=== PATIENT | male | born 1940 | race Caucasian/White ===

== ENCOUNTER → 2020-02-03 | Outpatient (CLI) | payer MEDICARE, BC ==
[2020-02-03 12:18] LABS: Basophils # (A) 0.1 k/uL (0-0.2); Basophils % (A) 1 %; Eosinophils # (A) 0.1 k/uL (0-0.7); Eosinophils % (A) 1 %; HGB 15.6 gm/dL (13.0-17.5); Lymphocytes # (A) 1.6 k/uL (1.0-4.8); Lymphocytes % (A) 20 %; MCH 31.3 pg (25.0-35.0); MCHC 33.3 g/dL (31.0-37.0); MCV 94.1 fL (80.0-100.0); Mean Platelet Volume 7.1; Monocytes # (A) 0.5 k/uL (0-1.0); Monocytes % (A) 6 %; Neutrophils # (A) 5.5 k/uL (1.3-7.7); Neutrophils % (A) 70 %; Platelet Count 329 k/uL (150-450); RBC 4.99 m/uL (4.30-5.90); RDW 12.3 % (11.5-15.5); WBC 7.9 k/uL (3.8-10.6)
[2020-02-03 16:12] LABS: Erythrocyte Sedimentation Rate 11 mm/hr (0-15)
== END | disposition home or self-care (01) ==
LOC: LABWHC1 10:22
PROVIDERS: ATTEND Psychiatry & Neurology Neurology
DX: M79.2 Neuralgia and neuritis, unspecified (principal); I77.6 Arteritis, unspecified
CPT/HCPCS: 36415; 85025; 85652

== ENCOUNTER → 2020-05-06 | Outpatient (CLI) | payer MEDICARE, BC ==
[2020-05-07 00:16] LABS: African American GFR (CKD) 94.5 (60.0-200.0); Anion Gap 8.1 mmol/L (4.00-12.00); BUN/Creat Ratio 22.22 Ratio (12.00-20.00); Carbon Dioxide 26.9 mmol/L (21.6-31.8); Non-African American GFR(CKD) 81.5 (60.0-200.0); Potassium 4.5 mmol/L (3.5-5.5)
== END | disposition home or self-care (01) ==
LOC: LABWHC1 14:29
PROVIDERS: ATTEND Psychiatry & Neurology Neurology
DX: Z51.81 Encounter for therapeutic drug level monitoring (principal); Z79.899 Other long term (current) drug therapy
CPT/HCPCS: 36415; 80048; 80183

== ENCOUNTER → 2021-06-07 | Outpatient (CLI) | payer MEDICARE, BC ==
[2021-06-07 16:19] LABS: Basophils # (A) 0.06 X 10*3/uL (0.00-0.10); Basophils % (A) 0.8 %; Eosinophils % (A) 1.3 %; HCT 43.8 % (39.6-50.0); HGB 14.4 g/dL (13.0-17.0); Lymphocytes # (A) 1.55 X 10*3/uL (0.90-5.00); Lymphocytes % (A) 20.9 %; MCH 31.6 pg (27.0-32.0); MCHC 32.9 g/dL (32.0-37.0); MCV 96.3 fL (80.0-97.0); Mean Platelet Volume 9.3 fL (9.5-12.2); Monocytes # (A) 0.59 X 10*3/uL (0.20-1.00); Neutrophils # (A) 5.09 X 10*3/uL (1.80-7.70); Neutrophils % (A) 68.6 %; Platelet Count 308 X 10*3/uL (140-440); RBC 4.55 X 10*6/uL (4.40-5.60); RDW 12.7 % (11.5-14.5); WBC 7.42 X 10*3/uL (4.50-10.00)
[2021-06-07 19:37] LABS: African American GFR (CKD) 93.8 (60.0-200.0); Albumin 4.6 g/dL (3.80-4.90); Albumin/Globulin Ratio 2.09 (1.60-3.17); Anion Gap 11.8 mmol/L (4.00-12.00); BUN/Creat Ratio 31.11 Ratio (12.00-20.00); Calcium 8.9 mg/dL (8.7-10.3); Carbon Dioxide 22.2 mmol/L (21.6-31.8); Globulin 2.2 g/dL (1.6-3.3); Non-African American GFR(CKD) 80.9 (60.0-200.0); Potassium 4.7 mmol/L (3.5-5.5); Total Bilirubin 0.5 mg/dL (0.2-1.2); Total Protein 6.8 g/dL (6.2-8.2)
== END | disposition home or self-care (01) ==
LOC: LABWHC1 09:57
PROVIDERS: ATTEND Psychiatry & Neurology Neurology
DX: Z51.81 Encounter for therapeutic drug level monitoring (principal)
CPT/HCPCS: 36415; 80053; 80183; 85025

== ENCOUNTER 2022-10-12 10:46 | Emergency (ER) | payer MEDICARE, BC ==
[2022-10-12 10:57] VITALS: PULSE 89; RESP 20; TEMP 98.4
--- NOTE | 2022-10-12 13:41 | ED ---
General Adult HPI - General Chief complaint: Abdominal Pain Stated complaint: blood in urine, abd pain Time Seen by Provider: 10/12/22 13:24 Source: patient Mode of arrival: ambulatory Limitations: no limitations - History of Present Illness Initial comments: Dictation was produced using [employer] dictation software. please excuse any grammatical, word or spelling errors. Chief Complaint: 82-year-old male presents with hematuria and abdominal pain History of Present Illness: Patient is a 82-year-old male presents emergency Department with 1 day of hematuria. He also complains of associated abdominal pain. Patient states that he was playing straight [employer]signal since yesterday. Patient also noted that he is having some suprapubic tenderness. Patient states that he just 10 minutes prior to my evaluation his symptoms improve slightly. Denies any fever. No nausea. No chills or night sweats. The ROS documented in this emergency department record has been reviewed and confirmed by me. Those systems with pertinent positive or negative responses have been documented in the HPI. All other systems are other negative and/or no ncontributory. PHYSICAL EXAM: General Impression: Alert and oriented x3, not in acute distress HEENT: Normocephalic atraumatic, extra-ocular movements intact, pupils equal and reactive to light bilaterally, mucous membranes moist. Cardiovascular: Heart regular rate and rhythm Chest: Able to complete full sentences, no retractions, no tachypnea Abdomen: abdomen soft, mild tenderness to the suprapubic area, non-distended, no organomegaly Musculoskeletal: Pulses present and equal in all extremities, no peripheral edema Motor: no focal deficits noted Neurological: CN II-XII grossly intact, no focal motor or sensory deficits noted Skin: Intact with no visualized rashes Psych: Normal affect and mood ED course: 82-year-old male presents to the emergency Department with acute hematuria and lower abdominal pain. Vital Signs upon arrival are within acceptable limits. Laboratory evaluation obtained. CBC, metabolic panel within acceptable limits. Urinalysis shows brown color. Bladder scan was elevated. Foreman catheter placed with removal of approximately 1 L of brown urine patient reports resolution of his symptoms after Foreman catheter placement. Patient discharged with referral to urology. - Related Data Home Medications Medication Instructions Recorded Confirmed Aspirin 325 mg PO DAILY 10/24/15 10/28/15 Cholecalciferol [Vitamin D3] 4,000 unit PO DAILY 10/24/15 10/28/15 Multivitamin [Men's Multi-Vitamin] 1 tab PO DAILY 10/24/15 10/28/15 Omeprazole [PriLOSEC] 20 mg PO Q48H 10/24/15 10/28/15 Rivastigmine [Exelon 13.3MG/24Hr 1 patch TOPICAL DAILY 10/24/15 10/28/15 Patch] Simvastatin [Zocor] 20 mg PO DAILY 10/24/15 10/28/15 Ubidecarenone [Co Q-10] 100 mg PO DAILY 10/24/15 10/28/15 amLODIPine BESYLATE/BENAZEPRIL 1 tab PO BID 10/24/15 10/28/15 [Lotrel 5-20 mg Capsule] Previous Rx's Medication Instructions Recorded Hydrocodone/Acetaminophen [[place] 1 - 2 each PO Q6HR PRN #40 tab 10/28/15 5-325] clindamycin HCL [Clindamycin HCl] 300 mg PO Q12HR #20 cap 10/28/15 Allergies Allergy/AdvReac Type Severity Reaction Status Date / Time No Known Allergies Allergy Verified 10/12/22 10:57 Review of Systems ROS Statement: Those systems with pertinent positive or pertinent negative responses have been documented in the HPI. ROS Other: All systems not noted in ROS Statement are negative. Past Medical History Past Medical History: Cancer, CVA/TIA, Hyperlipidemia, Hypertension Additional Past Medical History / Comment(s): HXOF BASAL CELL CA, HX KIDNEY STONES, SOME MEMORY LOSS POST TIA History of Any Multi-Drug Resistant Organisms: None Reported Additional Past Surgical History / Comment(s): BASAL CELL CA REMOVED FROM BACK Past Anesthesia/Blood Transfusion Reactions: No Reported Reaction Past Psychological History: No Psychological Hx Reported Smoking Status: Never smoker Past Alcohol Use History: Rare Past Drug Use History: None Reported - Past Family History Mother Family Medical History: Cancer Additional Family Medical History / Comment(s): BREAST Sister(s) Family Medical History: Cancer Additional Family Medical History / Comment(s): STOMACH Brother(s) Family Medical History: Cancer Additional Family Medical History / Comment(s): 2 BROTHERS HX OF CA General Exam Limitations: no limitations Course Vital Signs 10/12/22 10:55 Temperature 98.4 F Pulse Rate 89 Respiratory 20 Rate O2 Sat by Pulse 96 Oximetry Medical Decision Making - Lab Data Result diagrams: 10/12/22 14:14 10/12/22 14:14 Lab Results 10/12/22 10/12/22 10/12/22 Range/Units 13:57 14:14 14:14 WBC 15.2 H (3.8-10.6) k/uL RBC 4.64 (4.30-5.90) m/uL Hgb 14.7 (13.0-17.5) gm/dL Hct 42.5 (39.0-53.0) % MCV 91.4 (80.0-100.0) fL MCH 31.7 (25.0-35.0) pg MCHC 34.7 (31.0-37.0) g/dL RDW 12.5 (11.5-15.5) % Plt Count 314 (150-450) k/uL MPV 7.1 Neutrophils % 90 % Lymphocytes % 4 % Monocytes % 5 % Eosinophils % 0 % Basophils % 0 % Neutrophils # 13.6 H (1.3-7.7) k/uL Lymphocytes # 0.6 L (1.0-4.8) k/uL Monocytes # 0.8 (0-1.0) k/uL Eosinophils # 0.1 (0-0.7) k/uL Basophils # 0.0 (0-0.2) k/uL Sodium 137 (137-145) mmol/L Potassium 4.6 (3.5-5.1) mmol/L Chloride 102 (98-107) mmol/L Carbon Dioxide 23 (22-30) mmol/L Anion Gap 12 mmol/L BUN 29 H (9-20) mg/dL Creatinine 1.24 (0.66-1.25) mg/dL Est GFR (CKD-EPI)AfAm 63 (>60 ml/min/1.73 sqM) Est GFR (CKD-EPI)NonAf 55 (>60 ml/min/1.73 sqM) Glucose 121 H (74-99) mg/dL Calcium 9.6 (8.4-10.2) mg/dL Urine Color Brown Urine Appearance Bloody (Clear) Disposition Clinical Impression: Urinary retention Disposition: HOME SELF-CARE Condition: Good Instructions (If sedation given, give patient instructions): Foreman Catheter Placement and Care (ED) Is patient prescribed a controlled substance at d/c from ED?: No Referrals: Kristian Moore DO [Primary Care Provider] - 1-2 days Salvador Galarza MD [STAFF PHYSICIAN] - 1-2 days Time of Disposition: 15:03
[2022-10-12 14:07] LABS: Appearance,Urine Bloody (Clear); Color,Urine Brown
[2022-10-12 14:31] LABS: Basophils % (A) 0 %; Eosinophils # (A) 0.1 k/uL (0-0.7); Eosinophils % (A) 0 %; HCT 42.5 % (39.0-53.0); HGB 14.7 gm/dL (13.0-17.5); Lymphocytes # (A) 0.6 k/uL (1.0-4.8); Lymphocytes % (A) 4 %; MCH 31.7 pg (25.0-35.0); MCHC 34.7 g/dL (31.0-37.0); MCV 91.4 fL (80.0-100.0); Mean Platelet Volume 7.1; Monocytes # (A) 0.8 k/uL (0-1.0); Monocytes % (A) 5 %; Neutrophils # (A) 13.6 k/uL (1.3-7.7); Neutrophils % (A) 90 %; Platelet Count 314 k/uL (150-450); RBC 4.64 m/uL (4.30-5.90); RDW 12.5 % (11.5-15.5); WBC 15.2 k/uL (3.8-10.6)
[2022-10-12 14:48] LABS: Calcium 9.6 mg/dL (8.4-10.2); Potassium 4.6 mmol/L (3.5-5.1)
== END 2022-10-12 15:39 | disposition home or self-care (01) ==
LOC: EC 10:46
DX: R33.9 Retention of urine, unspecified (principal); I10 Essential (primary) hypertension; G45.9 Transient cerebral ischemic attack, unspecified; E78.5 Hyperlipidemia, unspecified; Z79.82 Long term (current) use of aspirin; Z79.899 Other long term (current) drug therapy
CPT/HCPCS: 36415; 51798; 80048; 85025; 99284

== ENCOUNTER → 2022-11-02 | Outpatient (CLI) | payer MEDICARE, BC ==
--- NOTE | 2022-11-03 10:59 | CT ---
EXAMINATION TYPE: CT urogram wo/w con CT DLP: 1557.5 mGycm, Automated exposure control for dose reduction was used. DATE OF EXAM: 11/02/2022 5:19 PM COMPARISON: None CLINICAL INDICATION:Male, 82 years old with history of R31.0 HEMATURIA, HEMATURIA TECHNIQUE: Urogram with imaging of the abdomen and pelvis. Coronal and sagittal reformats were performed. 2D and 3D reconstructions are performed to assist visualization of the urinary tract on a separate workstat ion. Contrast used:100ML mL of Isovue 300 with IV Contrast, Oral contrast used: None. FINDINGS: GENITOURINARY: RIGHT KIDNEY AND URETER: Multiple renal calculi measuring up to 10 mm. Large right exophytic mass off the inferior posterior kidney injury up to 9.5 x 8.2 x 8.8 cm there is predominantly peripheral enhancement with its smaller area of central nonenhancement suggesting cavi tation. No hydronephrosis or hydroureter. The ureter appears unremarkable. LEFT KIDNEY AND URETER: No calculi. No hydronephrosis or hydroureter. Posterior lateral left renal mass which enhances measuring up to 4.8 x 4.9 x 6.0 cm. Additional more anterior lateral 17 mm enhancing lesion. Lastly a posterior medial 13 mm enhancing lesion is also present. 10 mm lesion in the anterior superior aspect of the left kidney is also suggested but suboptimally ev aluated. There is bulbous dilation of the left renal vein. The ureter appears unremarkable. URINARY BLADDER: Limited evaluation secondary to partial filling of the bladder with excreted IV cont rast. No calculi or obvious mass. Foreman catheter in place. REPRODUCTIVE: Prostate gland is enlarged projected to 5.3 cm in transverse dimension. ABDOMEN LIVER: Unremarkable. GALLBLADDER AND BILE DUCTS: Layering gallstones present. PANCREAS: Unremarkable. SPLEEN: Unremarkable. ADRENAL GLANDS: Unremarkable. STOMACH AND BOWEL: No evidence of bowel obstruction. Scattered clonic diverticulosis. PERITONEUM: No evidence of pneumoperitoneum, free fluid, or adenopathy. VASCULATURE: No evidence of aortic aneurysm. MUSCULOSKELETAL: No acute osseous abnormalities LYMPH NODES: No gross evidence for lymphadenopathy. SOFT TISSUE/ABDOMINAL WALL: Unremarkable LOWER CHEST: Mitral valve annular calcifications, atherosclerosis of the coronary arteries visualized . IMPRESSION: 1. Multiple renal lesions concerning for renal cell carcinoma, the largest on the right measuring up to 9.5 cm. At least 3 areas within the left kidney the largest measuring up to 6.0 cm while the smal ler more anterior laterally measuring up to 1.7 cm and posterior medially measuring 1.3 cm. Somewhat bulbous dilation of the left renal vein unclear whether there is tumor within the vein itself. There is also a small left anterior renal 10 mm lesion which could represent renal cell carcinoma as well. Evaluation with MRI may be of benefit. 2. Nonobstructing right renal calculi. 3. Cholelithiasis. 4. Prostatomegaly with Foreman catheter in place.
== END | disposition home or self-care (01) ==
LOC: RADCTMAIN 13:43
PROVIDERS: ATTEND Urology
DX: N20.0 Calculus of kidney (principal); K80.20 Calculus of gallbladder without cholecystitis without obstruction; N40.0 Benign prostatic hyperplasia without lower urinary tract symptoms; N28.9 Disorder of kidney and ureter, unspecified
CPT/HCPCS: 82565; 84520; 74178; 74400; Q9967

== ENCOUNTER → 2022-11-20 | Outpatient (CLI) | payer MEDICARE, BC ==
[2022-11-20 14:19] LABS: African American GFR (CKD) >90 (>60 ml/min/1.73 sqM); Blood Urea Nitrogen 20 mg/dL (9-20); Non-African American GFR(CKD) 83 (>60 ml/min/1.73 sqM)
--- NOTE | 2022-11-20 15:18 | CT ---
EXAMINATION TYPE: CT chest w con DATE OF EXAM: 11/20/2022 COMPARISON: None HISTORY: Obs for mets CT DLP: 435 mGycm Automated exposure control for dose reduction was used. CONTRAST: CT scan of the chest is performed with IV Contrast, patient injected with 100ml mL of Isovue 300. FINDINGS: LUNGS: The lungs are grossly clear, there is no concerning parenchymal mass or nodule identified. T here is no pleural effusion or pneumothorax seen. The tracheobronchial tree is patent. MEDIASTINUM: There are no greater than 1 cm hilar or mediastinal lymph nodes. No pericardial effusi on is seen. Thoracic aorta is of normal caliber. The heart is not enlarged. UPPER ABDOMEN: Partially imaged left renal mass for renal cell carcinoma. Cholelithiasis. OTHER: No additional significant abnormality is seen. IMPRESSION: No evidence for metastatic disease to the chest.
== END | disposition home or self-care (01) ==
LOC: RADCTMAIN 13:42
PROVIDERS: ATTEND Urology
DX: C64.1 Malignant neoplasm of right kidney, except renal pelvis (principal); C64.2 Malignant neoplasm of left kidney, except renal pelvis
CPT/HCPCS: 82565; 84520; 71260; 36415; Q9967

== ENCOUNTER → 2023-06-27 | Outpatient (CLI) | payer MEDICARE, BC ==
[2023-06-27 11:56] LABS: African American GFR (CKD) 49 (>60 ml/min/1.73 sqM); Blood Urea Nitrogen 41 mg/dL (9-20); Non-African American GFR(CKD) 43 (>60 ml/min/1.73 sqM)
--- NOTE | 2023-06-27 19:52 | CT ---
EXAMINATION TYPE: CT chest w con CT DLP: 339.9 mGycm, Automated exposure control for dose reduction was used. DATE OF EXAM: 06/27/2023 12:27 PM COMPARISON: CT chest 11/20/2022 CLINICAL INDICATION:Male, 82 years old with history of J39.8 OTHER SPECIFIED DISEASES OF UPPER RESPIR ATOR; PHH, chest mass TECHNIQUE: Multiple axial images were obtained through the chest following the administration of 80 c c of Isovue 300. . Coronal and sagittal reformats reviewed. FINDINGS: LUNGS/ PLEURA: No pleural effusion, pneumothorax, focal consolidation. Left upper lobe 5 mm pulmonary nodule (series 4, image 30). Previously measured 3 mm. No new pulmonary nodules. AIRWAY: Patent and unremarkable.. No definitive paratracheal mass. HEART: Size within normal limits.No pericardial effusion. Moderate coronary tear calcifications. Aort ic valvular and mitral annulus calcifications. MEDIASTINUM: No evidence of adenopathy. VASCULATURE: No aortic aneurysm. Atherosclerotic calcification of the aorta and its branches. Dilata tion the main pulmonary artery measuring up to 3.8 cm. This can be seen in the setting of pulmonary a rterial hypertension. MUSCULOSKELETAL: No acute osseous abnormalities. No aggressive osseous lesion. Minimal multilevel deg enerative disc disease. SOFT TISSUES/LYMPH NODES: Minimal bilateral gynecomastia. LOWER NECK: No significant findings. UPPER ABDOMEN: No significant findings. IMPRESSION: 1. No acute thoracic process. 2. Marginal increase in size of single left upper lobe 5 mm prominent nodule, previously 3 mm in 2021 . No new pulmonary nodules. Follow-up CT chest exam in 6 months is recommended.
== END | disposition home or self-care (01) ==
LOC: RADCTMAIN 11:13
PROVIDERS: ATTEND Family Medicine
DX: J39.8 Other specified diseases of upper respiratory tract (principal); R91.1 Solitary pulmonary nodule
CPT/HCPCS: 82565; 84520; 71260; 36415; Q9967

== ENCOUNTER → 2023-12-17 | Outpatient (CLI) | payer MEDICARE, BC ==
--- NOTE | 2023-12-17 14:54 | CT ---
EXAMINATION TYPE: CT chest wo con DATE OF EXAM: 12/17/2023 COMPARISON: 727, 11/20/2000 HISTORY: SOLITARY PULMONARY NODULE CT DLP: 366.7 mGycm. Automated Exposure Control for Dose Reduction was Utilized. TECHNIQUE: CT scan of the thorax is performed without IV contrast. FINDINGS: LUNGS: The lungs are grossly clear, there is no concerning consolidative pneumonia. There is no ple ural effusion or pneumothorax seen. The tracheobronchial tree is patent. Underlying edematous change s. Subsegmental areas of atelectasis. Elevated left hemidiaphragm. There is mild peribronchial wall t hickening which is stable and may be associated with chronic bronchitis\bronchiolitis. No suspicious pulmonary nodules. Previously noted 5 mm nodule in the left upper lobe has resolved. There is a stable 2 mm benign subpleural micronodule right upper lobe axial image 28 series There is a subpleural benign micronodule measuring 2 mm left upper lobe axial image [address] able. MEDIASTINUM: Lack of IV contrast is noted to limit evaluation for mediastinal and especially hilar ad enopathy. There are no definitive greater than 1 cm hilar or mediastinal lymph nodes. Heart is mildly enlarged and there is calcification of the aortic root and near the aortic valve. Dense coronary art bebeto calcification. Trace of pericardial fluid. Aorta normal caliber with mild atherosclerotic changes . Mitral annular calcification. OTHER: Cholelithiasis. Hypertrophic and degenerative changes spine. Left kidney nonvisualized. A trac e of gynecomastia. Lung the anterior margin of the scapula there is intramuscular small lipoma measur ing 1.5 cm stable prior exam. Small hiatal hernia. IMPRESSION: 1. There is interval resolution of a 5 mm left upper lobe nodule. Remaining pulmonary micronodules ar e stable benign-appearing involving both lung bases with screening low-dose CT scan as clinically war ranted. 2. Dense coronary artery calcification 3. Cholelithiasis. Follow-up recommendations for incidental pulmonary nodules are per [employer] or [employer].
== END | disposition home or self-care (01) ==
LOC: RADCTMAIN 13:59
PROVIDERS: ATTEND Family Medicine
DX: I25.10 Atherosclerotic heart disease of native coronary artery without angina pectoris (principal); K80.20 Calculus of gallbladder without cholecystitis without obstruction; R91.8 Other nonspecific abnormal finding of lung field
CPT/HCPCS: 71250

== ENCOUNTER 2024-01-05 11:20 | Emergency (ER) | payer MEDICARE, BC ==
[2024-01-05 11:31] VITALS: RESP 18
--- NOTE | 2024-01-05 13:00 | ED ---
General Adult HPI - General Chief complaint: Abdominal Pain Stated complaint: Abd Pain Time Seen by Provider: 01/05/24 12:45 Source: patient, RN notes reviewed, old records reviewed Mode of arrival: ambulatory Limitations: no limitations - History of Present Illness Initial comments: Patient is an 83-year-old male who presents emergency department complaining of abdominal pain. Has been intermittent for the last 4 to 5 days. No other associated complaints with it. It is located on the right side of his abdomen. He states it is not painful at this time. Last occurred earlier this morning. Has a known history of gallstones from prior CT. Presents with his sister for evaluation. He has no acute complaints at this time. Denies any chest pain, shortness of breath, abdominal pain, nausea, vomiting. No change in stooling habits. No other acute complaints. 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 - Related Data Home Medications Medication Instructions Recorded Confirmed Aspirin 325 mg PO DAILY 10/24/15 10/28/15 Cholecalciferol [Vitamin D3] 4,000 unit PO DAILY 10/24/15 10/28/15 Multivitamin [Men's Multi-Vitamin] 1 tab PO DAILY 10/24/15 10/28/15 Omeprazole [PriLOSEC] 20 mg PO Q48H 10/24/15 10/28/15 Rivastigmine [Exelon 13.3MG/24Hr 1 patch TOPICAL DAILY 10/24/15 10/28/15 Patch] Simvastatin [Zocor] 20 mg PO DAILY 10/24/15 10/28/15 Ubidecarenone [Co Q-10] 100 mg PO DAILY 10/24/15 10/28/15 amLODIPine BESYLATE/BENAZEPRIL 1 tab PO BID 10/24/15 10/28/15 [Lotrel 5-20 mg Capsule] Previous Rx's Medication Instructions Recorded Hydrocodone/Acetaminophen [[place] 1 - 2 each PO Q6HR PRN #40 tab 10/28/15 5-325] clindamycin HCL [Clindamycin HCl] 300 mg PO Q12HR #20 cap 10/28/15 Ciprofloxacin HCl [Cipro] 500 mg PO Q12HR 5 Days #10 tab 01/05/24 Allergies Allergy/AdvReac Type Severity Reaction Status Date / Time No Known Allergies Allergy Verified 01/05/24 11:25 Review of Systems ROS Statement: Those systems with pertinent positive or pertinent negative responses have been documented in the HPI. Review of Systems: CONST: Denies fever EYES: Denies blurry vision ENT: Denies nasal congestion C/V: Denies Chest pain RESP: Denies shortness of breath GI: Denies abdominal pain : Denies dysuria SKIN: Denies rash. MSK: Denies joint pain. NEURO: Denies headache ROS Other: All systems not noted in ROS Statement are negative. Past Medical History Past Medical History: Cancer, CVA/TIA, Hyperlipidemia, Hypertension Additional Past Medical History / Comment(s): HXOF BASAL CELL CA, HX KIDNEY STONES, SOME MEMORY LOSS POST TIA History of Any Multi-Drug Resistant Organisms: None Reported Additional Past Surgical History / Comment(s): BASAL CELL CA REMOVED FROM BACK, kidney removal. Past Anesthesia/Blood Transfusion Reactions: No Reported Reaction Past Psychological History: No Psychological Hx Reported Smoking Status: Never smoker Past Alcohol Use History: Rare Past Drug Use History: None Reported - Past Family History Mother Family Medical History: Cancer Additional Family Medical History / Comment(s): BREAST Sister(s) Family Medical History: Cancer Additional Family Medical History / Comment(s): STOMACH Brother(s) Family Medical History: Cancer Additional Family Medical History / Comment(s): 2 BROTHERS HX OF CA General Exam - General Exam Comments Initial Comments: General: Appears in no acute distress. HEAD: Normal with no signs of head trauma. EYES: EOMI ENT: Hearing grossly intact, normal oropharynx. RESPIRATORY: Clear breath sounds bilaterally. No wheezes, rales, or rhonchi. C/V: Regular rate and rhythm. S1 and S2 auscultated, no edema, peripheral pulses 2+ and intact throughout ABD: Abd is soft, nontender, nondistended EXT: Normal range of motion, no obvious deformity SKIN: No rashes or lesions observed on exposed skin. NEURO: Alert and oriented x 4. Limitations: no limitations Course Vital Signs 01/05/24 01/05/24 11:22 15:50 Temperature 98.5 F 98.0 F Pulse Rate 74 67 Respiratory 18 18 Rate Blood Pressure 161/75 175/84 O2 Sat by Pulse 94 L 93 L Oximetry Medical Decision Making - Medical Decision Making Was pt. sent in by a medical professional or institution (Dr., PA, VISUAL EDUCATOR, urgent care, hospital, or correction...) When possible be specific @ -No Did you speak to anyone other than the patient for history (EMS, parent, family, police, friend...)? What history was obtained from this source @ -No Did you review nursing and triage notes (agree or disagree)? Why? @ -I reviewed and agree with nursing and triage notes Were old charts reviewed (outside hosp., previous admission, EMS record, old EKG, old radiological studies, urgent care reports/EKG's, correction records)? Report findings @ -No old charts were reviewed Differential Diagnosis (chest pain, altered mental status, abdominal pain women, abdominal pain men, vaginal bleeding, weakness, fever, dyspnea, syncope, headache, dizziness, GI bleed, back pain, seizure, CVA, palpatations, mental health, musculoskeletal)? @ -Differential Abdominal Pain Men: Appendicitis, cholecystitis, diverticulosis, ischemic bowel, pancreatitis, hepatitis, UTI, gastroenteritis, AAA, incarcerated hernia, bowel obstruction, constipation, inflammatory bowel, hepatitis, peptic ulcer disease, splenic infarction, perforated viscus, testicular torsion, this is not meant to be an all-inclusive list EKG interpreted by me (3pts min.). @ -As above X-rays interpreted by me (1pt min.). @ -None done CT interpreted by me (1pt min.). @ -None done U/S interpreted by me (1pt. min.). @ -Ultrasound gallbladder reveals no obvious acute intra-abdominal process. No evidence of cholecystitis. Patient does have cholelithiasis. What testing was considered but not performed or refused? (CT, X-rays, U/S, labs)? Why? @ -None What meds were considered but not given or refused? Why? @ -None Did you discuss the management of the patient with other professionals (professionals i.e. , PA, VISUAL EDUCATOR, lab, RT, psych nurse, dialysis social worker, carcass splitter, teacher, contracts officer, case packer and sealer)? Give summary @ -No Was smoking cessation discussed for >3mins.? @ -No Was critical care preformed (if so, how long)? @ -No Were there social determinants of health that impacted care today? How? (Homelessness, low income, unemployed, alcoholism, drug addiction, transpor tation, low edu. Level, literacy, decrease access to med. care, alf, rehab)? @ -No Was there de-escalation of care discussed even if they declined (Discuss DNR or withdrawal of care, Hospice)? DNR status @ -No What co-morbidities impacted this encounter? (DM, HTN, Smoking, COPD, CAD, Cancer, CVA, ARF, Chemo, Hep., AIDS, mental health diagnosis, sleep apnea, morbid obesity)? @ -None Was patient admitted / discharged? Hospital course, mention meds given and route, prescriptions, significant lab abnormalities, going to OR and other pertinent info. @ -Patient is an 83-year-old male presenting with right-sided abdominal pain. Has been on and off for the last 4 to 5 days. Currently has no symptoms and is asymptomatic since earlier today. He has a known history of cholelithiasis. Denies any nausea, vomiting, change in stooling habits. We will obtain abdominal laboratory studies as well as ultrasound of the gallbladder. Patient was in agreement this plan. He will be given IV fluids but as he has no other symptoms no other medications are required at this time. He was in agreement this plan. Vital signs are within acceptable limits. Since imaging unremarkable. Patient does have cholelithiasis without any evidence of cholecystitis. Patient's laboratory studies also within acceptable limits. Chronic kidney disease present. Urinalysis borderline for UTI. I discussed results with the patient as well as his sister. He remains asymptomatic at this time. He will be started on an antibiotic as well as discharged home at this time. He was in agreement this plan. Strict return precautions discussed. I will provide the patient with a prescription for ciprofloxacin. I instructed the patient to follow up with their PCP in the next 1-3 days. I explained that the patient should return to the emergency department if they experience any worsening symptoms. Strict return precautions were discussed with the patient. The patient expressed understanding of these instructions. I answered all questions that the patient had. The patient was discharged home in good condit ion with their prescriptions and follow up information. Undiagnosed new problem with uncertain prognosis? @ -No Drug Therapy requiring intensive monitoring for toxicity (Heparin, Nitro, Insulin, Cardizem)? @ -No Were any procedures done? @ -No Diagnosis/symptom? @ -UTI, cholelithiasis Acute, or Chronic, or Acute on Chronic? @ -Acute Uncomplicated (without systemic symptoms) or Complicated (systemic symptoms)? @ -Complicated Side effects of treatment? @ -None Exacerbation, Progression, or Severe Exacerbation] @ -No Poses a threat to life or bodily function? @ -Unlikely - Lab Data Result diagrams: 01/05/24 14:27 01/05/24 14:50 Lab Results 01/05/24 01/05/24 01/05/24 Range/Units 13:15 14:27 14:37 WBC 9.6 (3.8-10.6) k/uL RBC 4.24 L (4.30-5.90) m/uL Hgb 13.7 (13.0-17.5) gm/dL Hct 39.8 (39.0-53.0) % MCV 93.8 (80.0-100.0) fL MCH 32.2 (25.0-35.0) pg MCHC 34.3 (31.0-37.0) g/dL RDW 13.1 (11.5-15.5) % Plt Count 270 (150-450) k/uL MPV 6.8 Neutrophils % 75 % Lymphocytes % 15 % Monocytes % 5 % Eosinophils % 4 % Basophils % 1 % Neutrophils # 7.2 (1.3-7.7) k/uL Lymphocytes # 1.4 (1.0-4.8) k/uL Monocytes # 0.5 (0-1.0) k/uL Eosinophils # 0.4 (0-0.7) k/uL Basophils # 0.1 (0-0.2) k/uL PT 10.2 (10.0-12.5) sec INR 0.9 (<1.2) APTT 24.1 (22.0-30.0) sec Sodium (137-145) mmol/L Potassium (3.5-5.1) mmol/L Chloride (98-107) mmol/L Carbon Dioxide (22-30) mmol/L Anion Gap mmol/L BUN (9-20) mg/dL Creatinine (0.66-1.25) mg/dL Est GFR (CKD-EPI)AfAm (>60 ml/min/1.73 sqM) Est GFR (CKD-EPI)NonAf (>60 ml/min/1.73 sqM) Glucose (74-99) mg/dL Plasma Lactic Acid Mike 0.9 (0.7-2.0) mmol/L Calcium (8.4-10.2) mg/dL Total Bilirubin (0.2-1.3) mg/dL AST (17-59) U/L ALT (4-49) U/L Alkaline Phosphatase (38-126) U/L Total Protein (6.3-8.2) g/dL Albumin (3.5-5.0) g/dL Amylase (30-110) U/L Lipase (23-300) U/L Urine Color Urine Appearance (Clear) Urine pH (5.0-8.0) Ur Specific [place] (1.001-1.035) Urine Protein (Negative) Urine Glucose (UA) (Negative) Urine Ketones (Negative) Urine Blood (Negative) Urine Nitrite (Negative) Urine Bilirubin (Negative) Urine Urobilinogen (<2.0) mg/dL Ur Leukocyte Esterase (Negative) Urine RBC (0-5) /hpf Urine WBC (0-5) /hpf Urine Mucus (None) /hpf 01/05/24 01/05/24 Range/Units 14:50 15:10 WBC (3.8-10.6) k/uL RBC (4.30-5.90) m/uL Hgb (13.0-17.5) gm/dL Hct (39.0-53.0) % MCV (80.0-100.0) fL MCH (25.0-35.0) pg MCHC (31.0-37.0) g/dL RDW (11.5-15.5) % Plt Count (150-450) k/uL MPV Neutrophils % % Lymphocytes % % Monocytes % % Eosinophils % % Basophils % % Neutrophils # (1.3-7.7) k/uL Lymphocytes # (1.0-4.8) k/uL Monocytes # (0-1.0) k/uL Eosinophils # (0-0.7) k/uL Basophils # (0-0.2) k/uL PT (10.0-12.5) sec INR (<1.2) APTT (22.0-30.0) sec Sodium 140 (137-145) mmol/L Potassium 4.4 (3.5-5.1) mmol/L Chloride 111 H (98-107) mmol/L Carbon Dioxide 21 L (22-30) mmol/L Anion Gap 8 mmol/L BUN 25 H (9-20) mg/dL Creatinine 1.29 H (0.66-1.25) mg/dL Est GFR (CKD-EPI)AfAm 59 (>60 ml/min/1.73 sqM) Est GFR (CKD-EPI)NonAf 51 (>60 ml/min/1.73 sqM) Glucose 89 (74-99) mg/dL Plasma Lactic Acid Mike (0.7-2.0) mmol/L Calcium 8.3 L (8.4-10.2) mg/dL Total Bilirubin 0.4 (0.2-1.3) mg/dL AST 26 (17-59) U/L ALT 22 (4-49) U/L Alkaline Phosphatase 74 (38-126) U/L Total Protein 7.1 (6.3-8.2) g/dL Albumin 4.1 (3.5-5.0) g/dL Amylase 90 (30-110) U/L Lipase 80 (23-300) U/L Urine Color Colorless Urine Appearance Clear (Clear) Urine pH 6.0 (5.0-8.0) Ur Specific [place] 1.011 (1.001-1.035) Urine Protein Negative (Negative) Urine Glucose (UA) Negative (Negative) Urine Ketones Negative (Negative) Urine Blood Trace H (Negative) Urine Nitrite Positive (Negative) Urine Bilirubin Negative (Negative) Urine Urobilinogen <2.0 (<2.0) mg/dL Ur Leukocyte Esterase Moderate H (Negative) Urine RBC 3 (0-5) /hpf Urine WBC 19 H (0-5) /hpf Urine Mucus Rare H (None) /hpf - EKG Data -: EKG Interpreted by Me EKG Comments: 12-lead Electrocardiogram Interpretation Note EKG was reviewed and interpreted by myself. 12-lead ECG performed at 1324 is interpreted by me as revealing normal sinus rhythm at a rate of 67 beats per minute. Right axis deviation. CA interval is 234 ms, QRS duration is 170 ms, QTc is 446 ms.. There were no ST or T wave abnormalities to suggest myocardial ischemia or injury. R wave progression across the precordium was satisfactory. By my interpretation this EKG is non-diagnostic for acute ischemia. Disposition Clinical Impression: UTI (urinary tract infection), Cholelithiasis Disposition: HOME SELF-CARE Condition: Good Instructions (If sedation given, give patient instructions): Gallstones (ED), Urinary Tract Infection in Men (ED) Prescriptions: Ciprofloxacin HCl [Cipro] 500 mg PO Q12HR 5 Days #10 tab Is patient prescribed a controlled substance at d/c from ED?: No Referrals: Kristian Moore DO [Primary Care Provider] - 1-2 days Time of Disposition: 15:24
[2024-01-05] MEDS: SODIUM CHLORIDE 0.9% 1,000 ML IV STA (13:21)
[2024-01-05 14:30] LABS: Basophils # (A) 0.1 k/uL (0-0.2); Basophils % (A) 1 %; Eosinophils # (A) 0.4 k/uL (0-0.7); Eosinophils % (A) 4 %; HCT 39.8 % (39.0-53.0); HGB 13.7 gm/dL (13.0-17.5); Lymphocytes # (A) 1.4 k/uL (1.0-4.8); Lymphocytes % (A) 15 %; MCH 32.2 pg (25.0-35.0); MCHC 34.3 g/dL (31.0-37.0); MCV 93.8 fL (80.0-100.0); Mean Platelet Volume 6.8; Monocytes # (A) 0.5 k/uL (0-1.0); Monocytes % (A) 5 %; Neutrophils # (A) 7.2 k/uL (1.3-7.7); Neutrophils % (A) 75 %; Platelet Count 270 k/uL (150-450); RBC 4.24 m/uL (4.30-5.90); RDW 13.1 % (11.5-15.5); WBC 9.6 k/uL (3.8-10.6)
--- NOTE | 2024-01-05 14:47 | US ---
EXAMINATION TYPE: US gallbladder DATE OF EXAM: 01/05/2024 COMPARISON: NONE CLINICAL INDICATION: Male, 83 years old with history of ruq abd pain; recent CT showed Gb stones, abd pain on and off TECHNIQUE: Multiple sonographic images of the right upper quadrant are obtained. FINDINGS: EXAM MEASUREMENTS: Liver Length: 17.6 cm Gallbladder Wall: 0.3 cm CBD: 0.5 cm Right Kidney: 9.2 x 4.2 x 5.5 cm CHAPLAIN NOTES:bowel gas limits exam Pancreas: obscured by bowel gas Liver: left lobe obscured, intercostal on the right wnl Gallbladder: multiple shadowing stones seen wit borderline wall Evidence for sonographic Pérez's sign: no CBD: wnl Right Kidney: part of right renal removed this last year due to CA IMPRESSION: 1. Echogenic and mildly enlarged liver. 2. Multiple tiny gallstones. 3. Sonographic Pérez sign negative 4. Partial right nephrectomy..
[2024-01-05 15:03] LABS: INR 0.9 (<1.2); Partial Thromboplastin Time 24.1 sec (22.0-30.0); Prothrombin Time 10.2 sec (10.0-12.5)
[2024-01-05 15:08] LABS: ALT 22 U/L (4-49); AST 26 U/L (17-59); African American GFR (CKD) 59 (>60 ml/min/1.73 sqM); Albumin 4.1 g/dL (3.5-5.0); Alkaline Phosphatase 74 U/L (38-126); Amylase 90 U/L (30-110); Anion Gap 8 mmol/L; Blood Urea Nitrogen 25 mg/dL (9-20); Calcium 8.3 mg/dL (8.4-10.2); Carbon Dioxide 21 mmol/L (22-30); Chloride 111 mmol/L (98-107); Glucose 89 mg/dL (74-99); Lipase 80 U/L (23-300); Non-African American GFR(CKD) 51 (>60 ml/min/1.73 sqM); Potassium 4.4 mmol/L (3.5-5.1); Sodium 140 mmol/L (137-145); Total Bilirubin 0.4 mg/dL (0.2-1.3); Total Protein 7.1 g/dL (6.3-8.2)
[2024-01-05 15:15] LABS: Appearance,Urine Clear (Clear); Bilirubin,Urine Negative (Negative); Blood,Urine Trace (Negative); Color,Urine Colorless; Glucose,Urine (UA) Negative (Negative); Ketones,Urine Negative (Negative); Leukocyte Esterase,Urine Moderate (Negative); Mucus,Urine Rare /hpf; Nitrite,Urine Positive (Negative); Protein,Urine Negative (Negative); RBC,Urine 3 /hpf (0-5); Specific Gravity,Urine 1.011 (1.001-1.035); Urobilinogen,Urine <2.0 mg/dL (<2.0); WBC,Urine 19 /hpf (0-5)
[2024-01-05] MEDS: CIPROFLOXACIN HCL 500 MG TAB PO STA (15:57)
[2024-01-05 16:05] VITALS: BP 175/84; PULSE 67; TEMP 98
== END 2024-01-05 16:05 | disposition home or self-care (01) ==
LOC: EC 11:20
DX: N39.0 Urinary tract infection, site not specified (principal); K80.20 Calculus of gallbladder without cholecystitis without obstruction; I44.0 Atrioventricular block, first degree; E78.5 Hyperlipidemia, unspecified; I10 Essential (primary) hypertension; Z79.899 Other long term (current) drug therapy; Z79.82 Long term (current) use of aspirin
CPT/HCPCS: 36415; 76705; 80053; 81001; 82150; 83605; 83690; 85025; 85610; 85730; 87086; 93005; 96360; 99284

== ENCOUNTER 2025-06-03 13:03 | Inpatient (IN) | payer MEDICARE, BC ==
[2025-06-03 14:52] LABS: ALT 26 U/L (4-49); African American GFR (CKD) 35 (>60 ml/min/1.73 sqM); Anion Gap 17 mmol/L; Blood Urea Nitrogen 62 mg/dL (9-20); Calcium 9.6 mg/dL (8.4-10.2); Carbon Dioxide 19 mmol/L (22-30); Chloride 103 mmol/L (98-107); Glucose 97 mg/dL (74-99); Non-African American GFR(CKD) 30 (>60 ml/min/1.73 sqM); Sodium 139 mmol/L (137-145)
[2025-06-03 14:57] LABS: Albumin 4.7 g/dL (3.5-5.0); Potassium 5.5 mmol/L (3.5-5.1); Total Protein 7.5 g/dL (6.3-8.2)
[2025-06-03 14:58] LABS: AST 33 U/L (17-59); Alkaline Phosphatase 49 U/L (38-126)
[2025-06-03] MEDS ORDERED: DEXAMETHASONE SOD PHOSPHATE 10 MG/ML 1 ML VIAL IM STA (15:06)
--- NOTE | 2025-06-03 15:12 | ED ---
General Adult HPI - General Chief complaint: Extremity Problem,Nontraumatic Stated complaint: rash,arm swelling Time Seen by Provider: 06/03/25 14:55 Source: patient, family, RN notes reviewed, old records reviewed Mode of arrival: wheelchair Limitations: no limitations - History of Present Illness Initial comments: 84-year-old male presenting with a several day history of rash on his upper extremities and torso. Patient denies any exposure, first noticed the rash on his arms. Patient denies any medication changes. He has been on the same medication for many years. He states the rash is somewhat itchy. No new lotions, no new detergents. No difficulty breathing. No fever. - Related Data Home Medications Medication Instructions Recorded Confirmed Aspirin 325 mg PO DAILY 10/24/15 10/28/15 Cholecalciferol [Vitamin D3] 4,000 unit PO DAILY 10/24/15 10/28/15 Multivitamin [Men's Multi-Vitamin] 1 tab PO DAILY 10/24/15 10/28/15 Omeprazole [PriLOSEC] 20 mg PO Q48H 10/24/15 10/28/15 Rivastigmine [Exelon 13.3MG/24Hr 1 patch TOPICAL DAILY 10/24/15 10/28/15 Patch] Simvastatin [Zocor] 20 mg PO DAILY 10/24/15 10/28/15 Ubidecarenone [Co Q-10] 100 mg PO DAILY 10/24/15 10/28/15 amLODIPine BESYLATE/BENAZEPRIL 1 tab PO BID 10/24/15 10/28/15 [Lotrel 5-20 mg Capsule] Previous Rx's Medication Instructions Recorded Hydrocodone/Acetaminophen [[place] 1 - 2 each PO Q6HR PRN #40 tab 10/28/15 5-325] clindamycin HCL [Clindamycin HCl] 300 mg PO Q12HR #20 cap 10/28/15 Ciprofloxacin HCl [Cipro] 500 mg PO Q12HR 5 Days #10 tab 01/05/24 Allergies Allergy/AdvReac Type Severity Reaction Status Date / Time No Known Allergies Allergy Verified 01/05/24 11:25 Review of Systems ROS Statement: Those systems with pertinent positive or pertinent negative responses have been documented in the HPI. ROS Other: All systems not noted in ROS Statement are negative. Past Medical History Past Medical History: Cancer, CVA/TIA, Hyperlipidemia, Hypertension Additional Past Medical History / Comment(s): HXOF BASAL CELL CA, HX KIDNEY STONES, SOME MEMORY LOSS POST TIA History of Any Multi-Drug Resistant Organisms: None Reported Additional Past Surgical History / Comment(s): BASAL CELL CA REMOVED FROM BACK, kidney removal. Past Anesthesia/Blood Transfusion Reactions: No Reported Reaction Past Psychological History: No Psychological Hx Reported Smoking Status: Never smoker Past Alcohol Use History: Rare Past Drug Use History: None Reported - Past Family History Mother Family Medical History: Cancer Additional Family Medical History / Comment(s): BREAST Sister(s) Family Medical History: Cancer Additional Family Medical History / Comment(s): STOMACH Brother(s) Family Medical History: Cancer Additional Family Medical History / Comment(s): 2 BROTHERS HX OF CA General Exam Limitations: no limitations General appearance: alert, in no apparent distress Head exam: Present: atraumatic, normocephalic Eye exam: Present: normal appearance, PERRL, EOMI Neck exam: Present: normal inspection. Absent: tenderness, meningismus Respiratory exam: Absent: respiratory distress, wheezes Cardiovascular Exam: Present: regular rate, normal rhythm GI/Abdominal exam: Present: soft. Absent: distended, tenderness, guarding Neurological exam: Present: alert, oriented X3 Skin exam: Present: rash, erythema. Absent: urticaria, vesicles Course Vital Signs 06/03/25 06/03/25 13:12 16:00 Temperature 97.7 F Pulse Rate 79 72 Respiratory 18 16 Rate Blood Pressure 100/62 138/81 O2 Sat by Pulse 94 L 98 Oximetry Medical Decision Making - Medical Decision Making Was pt. sent in by a medical professional or institution (, PA, COMMERCIAL PHOTOGRAPHER, urgent care, hospital, or [facility]...) When possible be specific @ -No Did you speak to anyone other than the patient for history (EMS, parent, family, police, friend...)? What history was obtained from this source @Patient's sister who is at bedside. Did you review nursing and triage notes (agree or disagree)? Why? @ -I reviewed and agree with nursing and triage notes Were old charts reviewed (outside hosp., previous admission, EMS record, old EKG, old radiological studies, urgent care reports/EKG's, [facility]cc records)? Report findings @ -No old charts were reviewed Differential diagnosis: Drug eruption, Sarabia-Sandeep's, [place], eczema, viral exanthem, contact dermatitis EKG interpreted by me (3pts min.). @ -As above X-rays interpreted by me (1pt min.). @ -None done CT interpreted by me (1pt min.). @ -None done U/S interpreted by me (1pt. min.). @ -None done What testing was considered but not performed or refused? (CT, X-rays, U/S, labs)? Why? @ -None What meds were considered but not given or refused? Why? @ -None Did you discuss the management of the patient with other professionals (prof prabhakar i.e. , PA, COMMERCIAL PHOTOGRAPHER, lab, RT, psych nurse, psychiatric social worker supervisor, cork mixer, teacher, sheriff's officer, case assembler)? Give summary @Dr. Ritter Was smoking cessation discussed for >3mins.? @ -No Was critical care preformed (if so, how long)? @ -No Were there social determinants of health that impacted care today? How? (Homelessness, low income, unemployed, alcoholism, drug addiction, transportation, low edu. Level, literacy, decrease access to med. care, [facility], rehab)? @ -No Was there de-escalation of care discussed even if they declined (Discuss DNR or withdrawal of care, Hospice)? DNR status @ -No What co-morbidities impacted this encounter? (DM, HTN, Smoking, COPD, CAD, Cancer, CVA, ARF, Chemo, Hep., AIDS, mental health diagnosis, sleep apnea, morbid obesity)? @ -None Was patient admitted / discharged? Hospital course, mention meds given and route, prescriptions, significant lab abnormalities, going to OR and other pertinent info. @ -84-year-old male presenting with generalized rash. This is erythematous raised rash covering the bilateral upper extremities. There is no blistering. Patient is on ox carbamazepine and chlorthalidone. He states there was some exposure but this was quite minimal. The rashes in both sun exposed areas and not exposed areas. No fever. Patient has a ROYAL with elevated BUN and creatinine from baseline. He has a normal CBC. Patient placed on IV fluids, steroids, and Benadryl. Will observe overnight. Will hold both oxcarbazepine and chlorthalidone as possible offending agents. Case discussed with Dr. Ritter who will admit. Undiagnosed new problem with uncertain prognosis? @ -No Drug Therapy requiring intensive monitoring for toxicity (Heparin, Nitro, Insulin, Cardizem)? @ -No Were any procedures done? @ -No Diagnosis/symptom? @ -ROYAL, dehydration, generalized rash Acute, or Chronic, or Acute on Chronic? @ -Acute Uncomplicated (without systemic symptoms) or Complicated (systemic symptoms)? @ -Default Side effects of treatment? @ -No Exacerbation, Progression, or Severe Exacerbation? @ -No Poses a threat to life or bodily function? How? (Chest pain, [place], [place], pneumonia, PE, COPD, DKA, ARF, appy, cholecystitis, CVA, Diverticulitis, Homicidal, Suicidal, threat to staff... and all critical care pts) @Yes, Cornelius DICK's - Lab Data Result diagrams: 06/03/25 15:30 06/03/25 14:29 Lab Results 06/03/25 06/03/25 Range/Units 14:29 15:30 WBC 9.78 (4.50-10.00) 10*3/uL RBC 4.31 L (4.40-5.60) 10*6/uL Hgb 13.8 (13.0-17.0) g/dL Hct 41.0 (39.6-50.0) % MCV 95.1 (80.0-97.0) fL MCH 32.0 (27.0-32.0) pg MCHC 33.7 (32.0-37.0) g/dL Plt Count 282 (140-440) 10*3/uL MPV 8.3 L (9.5-12.2) fL Immature Gran % (Auto) 0.6 % Neutrophils % 72.4 % Lymphocytes % 13.2 % Monocytes % 7.1 % Eosinophils % 6.3 % Basophils % 0.4 % Immature Gran # 0.06 H (0.00-0.04) 10*3/uL Neutrophils # 7.08 (1.80-7.70) 10*3/uL Lymphocytes # 1.29 (0.90-5.00) 10*3/uL Monocytes # 0.69 (0.20-1.00) 10*3/uL Eosinophils # 0.62 H (0.04-0.35) 10*3/uL Basophils # 0.04 (0.00-0.10) 10*3/uL Sodium 139 (137-145) mmol/L Potassium 5.5 H (3.5-5.1) mmol/L Chloride 103 (98-107) mmol/L Carbon Dioxide 19 L (22-30) mmol/L Anion Gap 17 mmol/L BUN 62 H (9-20) mg/dL Creatinine 1.99 H (0.66-1.25) mg/dL Est GFR (CKD-EPI)AfAm 35 (>60 ml/min/1.73 sqM) Est GFR (CKD-EPI)NonAf 30 (>60 ml/min/1.73 sqM) Glucose 97 (74-99) mg/dL Calcium 9.6 (8.4-10.2) mg/dL Total Bilirubin 0.8 (0.2-1.3) mg/dL AST 33 (17-59) U/L ALT 26 (4-49) U/L Alkaline Phosphatase 49 (38-126) U/L Total Protein 7.5 (6.3-8.2) g/dL Albumin 4.7 (3.5-5.0) g/dL Disposition Clinical Impression: Drug eruption, ROYAL (acute kidney injury) Disposition: ADMITTED IP TO THIS HOSP Condition: Stable Is patient prescribed a controlled substance at d/c from ED?: No Referrals: Kristian Moore DO [Primary Care Provider] - 1-2 days Time of Disposition: 16:27
[2025-06-03] MEDS: SODIUM CHLORIDE 0.9% 500 ML 500 ML IV ONE (15:37)
[2025-06-03] MEDS: DEXAMETHASONE SOD PHOSPHATE 10 MG/ML 1 ML VIAL IVP STA (15:38)
[2025-06-03 15:47] LABS: Basophils # (A) 0.04 10*3/uL (0.00-0.10); Basophils % (A) 0.4 %; Eosinophils # (A) 0.62 10*3/uL (0.04-0.35); Eosinophils % (A) 6.3 %; HCT 41.0 % (39.6-50.0); HGB 13.8 g/dL (13.0-17.0); Lymphocytes # (A) 1.29 10*3/uL (0.90-5.00); Lymphocytes % (A) 13.2 %; MCH 32.0 pg (27.0-32.0); MCHC 33.7 g/dL (32.0-37.0); MCV 95.1 fL (80.0-97.0); Monocytes # (A) 0.69 10*3/uL (0.20-1.00); Monocytes % (A) 7.1 %; Neutrophils # (A) 7.08 10*3/uL (1.80-7.70); Neutrophils % (A) 72.4 %; Platelet Count 282 10*3/uL (140-440); RBC 4.31 10*6/uL (4.40-5.60); RDW 13.3 % (11.5-14.5); WBC 9.78 10*3/uL (4.50-10.00)
[2025-06-03] MEDS: diphenhydrAMINE 25 MG CAP PO SCH (16:04)
[2025-06-03] MEDS: SODIUM CHLORIDE 0.9% 1,000 ML IV SCH (16:07)
[2025-06-03] MEDS ORDERED: NALOXONE 0.4 MG/ML 1 ML VIAL IV PRN (16:22)
[2025-06-03] MEDS ORDERED: ACETAMINOPHEN TAB 325 MG TAB PO PRN (16:22)
[2025-06-03] MEDS ORDERED: DEXTROSE 50% SYRINGE 50 ML IVP PRN ×2 (16:47)
[2025-06-03 17:00] LABS: Glucose,Whole Blood 100 mg/dL (70-110)
[2025-06-03] MEDS: INSULIN LISPRO (HumaLOG) 100 UNIT/ML 10 mL VL SQ SCH (17:02)
[2025-06-03] MEDS: diphenhydrAMINE 50 MG/ML 1 ML VIAL IVP SCH (17:03)
[2025-06-03 20:57] LABS: Glucose,Whole Blood 162 mg/dL (70-110)
[2025-06-04] MEDS: methylPREDNISolone SOD SUCCI 125 MG/2 ML VIAL IV SCH (00:22)
--- NOTE | 2025-06-04 01:06 | HP ---
HISTORY AND PHYSICAL CHIEF COMPLAINT: Diffuse rash. HISTORY OF PRESENT ILLNESS: This 84-year-old gentleman with a past medical history of multiple medical problems, hypertension, hyperlipidemia, being followed by Dr. Moore in the outpatient, recently had a fall. Medication assessment was being made. The patient is complaining of diffuse rash at this time, both hands and anterior part of the chest also. The patient was exposed to sun also. The patient was taking clindamycin also. There is no history of fever, rigors, or chills at this time. PAST MEDICAL HISTORY: Reviewed. Include CVA, TIA, hypertension, and hyperlipidemia. Dose and rest of medications reviewed. ALLERGIES: None. FAMILY HISTORY: History of breast cancer. SOCIAL HISTORY: No history of smoking. REVIEW OF SYSTEMS: A 14-point review of systems is negative except as mentioned earlier. PHYSICAL EXAMINATION: VITAL SIGNS: Pulse is 72, blood pressure 130/81, and respirations 16. HEENT: Conjunctivae normal. NECK: No jugular venous distention. CARDIOVASCULAR: S1, S2. RESPIRATIONS: Breath sounds diminished at the bases. ABDOMEN: Soft, nontender. LEGS: No edema. SKIN: Diffuse maculopapular rash present. LABORATORY DATA: Reviewed. ASSESSMENT: 1. Diffuse maculopapular rash, possible drug rash. 2. Chronic kidney disease. 3. Hyperkalemia mild. 4. History of CVA, TIA. 5. History of hypertension. 6. History of hyperlipidemia. 7. History of recent fall. RECOMMENDATIONS: This 84-year-old gentleman presented with multiple complex medical issues. We will monitor the patient closely. I would recommend intravenous steroids, Benadryl, symptomatic treatment. Guarded prognosis because of multiple complex medical. For further recommendations, see orders. We will avoid clindamycin at this time. MMODL / IJN: [id number] /
[2025-06-04 05:50] LABS: Glucose,Whole Blood 137 mg/dL (70-110)
[2025-06-04] MEDS ORDERED: predniSONE 20 MG TAB PO SCH (09:00)
[2025-06-04 09:29] LABS: Anion Gap 13.00 mmol/L (4.00-12.00); BUN/Creat Ratio 32.25 Ratio (12.00-20.00); Blood Urea Nitrogen 51.6 mg/dL (9.0-27.0); Calcium 8.7 mg/dL (8.7-10.3); Carbon Dioxide 18.0 mmol/L (21.6-31.8); Chloride 108 mmol/L (96-109); Glucose 142 mg/dL (70-110); Potassium 4.8 mmol/L (3.5-5.5); Sodium 139 mmol/L (135-145)
[2025-06-04 09:37] LABS: HCT 40.1 % (39.6-50.0); HGB 13.2 g/dL (13.0-17.0); MCH 32.0 pg (27.0-32.0); MCHC 32.9 g/dL (32.0-37.0); MCV 97.1 FL (80.0-97.0); NRBC Per 100 WBC 0 X 10*3/uL (0.00-0.01); Platelet Count 274 X 10*3/uL (140-440); RBC 4.13 X 10*6/uL (4.40-5.60); RDW 13.2 % (11.5-14.5); WBC 10.37 X 10*3/uL (4.50-10.00)
[2025-06-04 10:14] LABS: Basophils # (A) 0.02 X 10*3/uL (0.00-0.10); Basophils % (A) 0.2 %; Eosinophils # (A) 0.01 X 10*3/uL (0.04-0.35); Eosinophils % (A) 0.1 %; Immature Grans, Automated 0.90 %; Lymphocytes # (A) 0.56 X 10*3/uL (0.90-5.00); Lymphocytes % (A) 5.4 %; Monocytes # (A) 0.15 X 10*3/uL (0.20-1.00); Monocytes % (A) 1.4 %; Neutrophils # (A) 9.54 X 10*3/uL (1.80-7.70); Neutrophils % (A) 92.0 %
[2025-06-04 12:13] LABS: Glucose,Whole Blood 154 mg/dL (70-110)
--- NOTE | 2025-06-04 14:38 | PN ---
PROGRESS NOTE DATE OF SERVICE: 06/04/2025 SUBJECTIVE: This is an 84-year-old gentleman who was admitted with a diffuse skin rash. He is being closely monitored. The patient has intravenous steroids and Benadryl. The exact etiology of the rash is unknown at this time. PAST MEDICAL HISTORY: Reviewed. REVIEW OF SYSTEMS: Fourteen-point review of systems negative, except as mentioned earlier. CURRENT MEDICATIONS: Reviewed. PHYSICAL EXAMINATION: VITAL SIGNS: Pulse is a 92, blood pressure 170/80, respirations 18. HEENT: Conjunctivae normal. RESPIRATIONS: A few scattered rhonchi. ABDOMEN: Soft. NERVOUS SYSTEM: Nonfocal LABORATORY DATA: Reviewed. ASSESSMENT: 1. Diffuse maculopapular rash, possibly a drug rash. 2. Chronic kidney disease. 3. Hyperkalemia, mild. 4. History of cerebrovascular accident and transient ischemic attack. 5. Hypertension. 6. Hyperlipidemia. 7. History of recent fall. RECOMMENDATIONS: Recommend to continue current management. I recommend to continue with Benadryl as well as the steroids. Resume the home medications. Guarded prognosis because of multiple complex medical issues. Further recommendations to follow. MMODL / IJN: [id number] /
[2025-06-04] MEDS: METOPROLOL SUCCINATE (ER) 25 MG TAB.ER.24H PO SCH (16:02)
[2025-06-04] MEDS: TAMSULOSIN 0.4 MG CAP.ER.24H PO SCH (16:02)
[2025-06-04 17:39] LABS: Glucose,Whole Blood 172 mg/dL (70-110)
[2025-06-04 20:40] LABS: Glucose,Whole Blood 163 mg/dL (70-110)
[2025-06-04] MEDS: MULTIVITAMINS, THERA 1 EACH TAB PO SCH (21:22)
[2025-06-04] MEDS: CHOLECALCIFEROL 125 MCG (5000 IU) TABLET PO SCH (21:22)
[2025-06-04] MEDS: ZINC SULFATE 220 MG CAP PO SCH (21:22)
[2025-06-04] MEDS: ATORVASTATIN 10 MG TAB PO SCH (21:22)
[2025-06-05 05:52] LABS: Glucose,Whole Blood 149 mg/dL (70-110)
[2025-06-05] MEDS: ASPIRIN 81 MG PO SCH (09:19)
[2025-06-05] MEDS: amLODIPine 10 MG TAB PO SCH (09:19)
[2025-06-05 10:16] LABS: Anion Gap 14.30 mmol/L (4.00-12.00); BUN/Creat Ratio 29.00 Ratio (12.00-20.00); Blood Urea Nitrogen 43.5 mg/dL (9.0-27.0); Calcium 8.9 mg/dL (8.7-10.3); Carbon Dioxide 18.7 mmol/L (21.6-31.8); Chloride 106 mmol/L (96-109); Glucose 152 mg/dL (70-110); Potassium 5.1 mmol/L (3.5-5.5); Sodium 139 mmol/L (135-145)
[2025-06-05 12:17] LABS: Glucose,Whole Blood 158 mg/dL (70-110)
[2025-06-05 12:58] LABS: Basophils # (A) 0.03 X 10*3/uL (0.00-0.10); Basophils % (A) 0.2 %; Eosinophils # (A) 0 X 10*3/uL (0.04-0.35); Eosinophils % (A) 0 %; HCT 37.8 % (39.6-50.0); HGB 12.7 g/dL (13.0-17.0); Immature Grans, Automated 1.00 %; Lymphocytes # (A) 0.89 X 10*3/uL (0.90-5.00); Lymphocytes % (A) 5.8 %; MCH 32.5 pg (27.0-32.0); MCHC 33.6 g/dL (32.0-37.0); MCV 96.7 FL (80.0-97.0); Monocytes # (A) 0.42 X 10*3/uL (0.20-1.00); Monocytes % (A) 2.8 %; NRBC Per 100 WBC 0 X 10*3/uL (0.00-0.01); Neutrophils # (A) 13.77 X 10*3/uL (1.80-7.70); Neutrophils % (A) 90.2 %; Platelet Count 308 X 10*3/uL (140-440); RBC 3.91 X 10*6/uL (4.40-5.60); RDW 13.4 % (11.5-14.5); WBC 15.26 X 10*3/uL (4.50-10.00)
--- NOTE | 2025-06-05 15:04 | P.PN ---
Subjective Progress Note Date: 06/05/25 This is a pleasant 84-year-old male patient of Dr. Moore. He comes into the hospital secondary to generalized diffuse rash. He has been continued on a course of IV Solu-Medrol and IV Benadryl with significant improvement of the rash which extended on his trunk down to his groin and on his upper extremities. He is not having any significant shortness of breath and no wheezing was noted. Was recently started on chlorthalidone daily on April 05 by his distributor cleaner. He states that when he went for his checkup his blood work was fine and was told to continue on this medication. When he comes into the hospital this time his BUN was elevated at 62 and a creatinine of 1.99. Currently his BUN is down to 43.5 and a creatinine of 1.5. White blood cell count is elevated at 15.26. Patient has been afebrile. He has also been continued on 40 mg of lisinopril daily. This medication will be held patient will be continued on normal saline at 75 mL/h. He will be started on a low-dose of hydralazine for improved blood pressure control. Review of Systems Constitutional: Denied any fatigue denied any fever. Cardio vascular: denied any chest pain, palpitations Gastrointestinal: denied any nausea, vomiting, diarrhea Pulmonary: Denied any shortness of breath cough Neurologic denied any new focal deficits All inpatient medications were reviewed and appropriate changes in these medications as dictated in the interval history and assessment and plan. PHYSICAL EXAMINATION: GENERAL: The patient is alert and oriented x3, not in any acute distress. Well developed, well nourished. HEENT: Pupils are round and equally reacting to light. EOMI. No scleral icterus. No conjunctival pallor. Normocephalic, atraumatic. No pharyngeal erythema. No thyromegaly. CARDIOVASCULAR: S1 and S2 present. No murmurs, rubs, or gallops. PULMONARY: Chest is clear to auscultation, no wheezing or crackles. ABDOMEN: Soft, nontender, nondistended, normoactive bowel sounds. No palpable organomegaly. MUSCULOSKELETAL: No joint swelling or deformity. EXTREMITIES: No cyanosis, clubbing, or pedal edema. NEUROLOGICAL: Gross neurological examination did not reveal any focal deficits. SKIN: Maculopapular rash Left lower abdomen into groin Assessment Diffuse maculopapular rash possibly related to the new medication of chlorthalidone Acute kidney injury, drug-induced secondary to ANGELES inhibitor and chlorthalidone Hyperkalemia because of the ROYAL Leukocytosis likely reactive to the high dose solumedrol History of CVA/TIA Hypertension Hyperlipidemia History of renal cell carcinoma with partial right nephrectomy GI prophylaxis DVT prophylaxis Full Code Plan Continue IV benadryl, IV solumedrol Continue to hold chlorthalidone Hold lisinopril Continue normal saline at 75 mls/hr Check UA Continue to monitor renal function and electrolytes Add hydralazine BID for improved blood pressure control Continue amlodipine 10 mg daily Possible D/C home in the next 24 hours The impression and plan of care has been dictated by Rupali Coley, Nurse Practitioner as directed. Dr. Elmira MD I have performed a history and physical examination and medical decision making of this patient, discussed the same with the dictator, and agree with the dictators assessment and plan as written, documented as a scribe. Based on total visit time, I have performed more than 50% of this visit. Objective - Vital Signs Vital signs: Vital Signs Temp 97.8 F 06/05/25 07:23 Pulse 63 06/05/25 07:23 Resp 16 06/05/25 07:23 BP 181/90 06/05/25 07:23 Pulse Ox 98 06/05/25 07:23 FiO2 Intake & Output 06/04/25 06/05/25 06/05/25 18:59 06:59 18:59 Intake Total 118 360 Balance 118 360 Intake: Oral 118 360 Other: # Voids 2 2 # Bowel Movements 0 - Labs CBC & Chem 7: 06/05/25 05:25 06/05/25 05:25 Labs: Abnormal Lab Results - Last 24 Hours (Table) 06/04/25 06/04/25 06/05/25 Range/Units 17:37 20:35 05:25 WBC 15.26 H (4.50-10.00) X 10*3/uL RBC 3.91 L (4.40-5.60) X 10*6/uL Hgb 12.7 L (13.0-17.0) g/dL Hct 37.8 L (39.6-50.0) % MCH 32.5 H (27.0-32.0) pg MPV 9.1 L (9.5-12.2) FL Immature Gran # 0.15 H (0.00-0.04) X 10*3/uL Neutrophils # 13.77 H (1.80-7.70) X 10*3/uL Lymphocytes # 0.89 L (0.90-5.00) X 10*3/uL Eosinophils # 0 L (0.04-0.35) X 10*3/uL Carbon Dioxide (21.6-31.8) mmol/L Anion Gap (4.00-12.00) mmol/L BUN (9.0-27.0) mg/dL Est GFR (CKD-EPI) (>=60) BUN/Creatinine Ratio (12.00-20.00) Ratio Glucose (70-110) mg/dL POC Glucose (mg/dL) 172 H 163 H (70-110) mg/dL 06/05/25 06/05/25 06/05/25 Range/Units 05:25 05:51 12:16 WBC (4.50-10.00) X 10*3/uL RBC (4.40-5.60) X 10*6/uL Hgb (13.0-17.0) g/dL Hct (39.6-50.0) % MCH (27.0-32.0) pg MPV (9.5-12.2) FL Immature Gran # (0.00-0.04) X 10*3/uL Neutrophils # (1.80-7.70) X 10*3/uL Lymphocytes # (0.90-5.00) X 10*3/uL Eosinophils # (0.04-0.35) X 10*3/uL Carbon Dioxide 18.7 L (21.6-31.8) mmol/L Anion Gap 14.30 H (4.00-12.00) mmol/L BUN 43.5 H (9.0-27.0) mg/dL Est GFR (CKD-EPI) 46 L (>=60) BUN/Creatinine Ratio 29.00 H (12.00-20.00) Ratio Glucose 152 H (70-110) mg/dL POC Glucose (mg/dL) 149 H 158 H (70-110) mg/dL Assessment and Plan Time with Patient: Greater than 30
[2025-06-05 17:06] LABS: Glucose,Whole Blood 152 mg/dL (70-110)
[2025-06-05 19:11] LABS: Bilirubin,Urine Negative (Negative); Blood,Urine Negative (Negative); Color,Urine Colorless; Glucose,Urine (UA) Negative (Negative); Ketones,Urine Negative (Negative); Leukocyte Esterase,Urine Negative (Negative); Nitrite,Urine Negative (Negative); PH, Urine 5.5 (5.0-8.0); Protein,Urine Negative (Negative); Specific Gravity,Urine 1.014 (1.001-1.035); Urobilinogen,Urine <2.0 mg/dL (<2.0)
[2025-06-05 20:13] LABS: Glucose,Whole Blood 175 mg/dL (70-110)
[2025-06-06 06:08] LABS: Glucose,Whole Blood 147 mg/dL (70-110)
[2025-06-06 08:55] LABS: Basophils # (A) 0.03 X 10*3/uL (0.00-0.10); Basophils % (A) 0.2 %; Eosinophils # (A) 0 X 10*3/uL (0.04-0.35); Eosinophils % (A) 0 %; HCT 36.1 % (39.6-50.0); HGB 12.2 g/dL (13.0-17.0); Immature Grans, Automated 1.10 %; Lymphocytes # (A) 1.06 X 10*3/uL (0.90-5.00); Lymphocytes % (A) 6.7 %; MCH 32.6 pg (27.0-32.0); MCHC 33.8 g/dL (32.0-37.0); MCV 96.5 FL (80.0-97.0); Monocytes # (A) 0.39 X 10*3/uL (0.20-1.00); Monocytes % (A) 2.5 %; NRBC Per 100 WBC 0 X 10*3/uL (0.00-0.01); Neutrophils # (A) 14.07 X 10*3/uL (1.80-7.70); Neutrophils % (A) 89.5 %; Platelet Count 256 X 10*3/uL (140-440); RBC 3.74 X 10*6/uL (4.40-5.60); RDW 13.2 % (11.5-14.5); WBC 15.72 X 10*3/uL (4.50-10.00)
[2025-06-06 09:12] LABS: Anion Gap 12.90 mmol/L (4.00-12.00); BUN/Creat Ratio 27.92 Ratio (12.00-20.00); Blood Urea Nitrogen 36.3 mg/dL (9.0-27.0); Calcium 8.6 mg/dL (8.7-10.3); Carbon Dioxide 21.1 mmol/L (21.6-31.8); Chloride 102 mmol/L (96-109); Glucose 143 mg/dL (70-110); Magnesium 1.7 mg/dL (1.5-2.4); Potassium 4.9 mmol/L (3.5-5.5); Sodium 136 mmol/L (135-145)
[2025-06-06] MEDS ORDERED: Magnesium Replacement Protocol 1 EACH MISC MISCELLANE PRN (10:36)
[2025-06-06] MEDS: MAGNESIUM SULFATE-D5W PMX 1 GM in DEXTROSE/WATER 1 100ML.BAG IVPB ONE (11:12)
[2025-06-06 12:30] LABS: Glucose,Whole Blood 189 mg/dL (70-110)
--- NOTE | 2025-06-06 15:52 | P.PN ---
Subjective Progress Note Date: 06/06/25 This is a pleasant 84-year-old male patient of Dr. Moore. He comes into the hospital secondary to generalized diffuse rash. He has been continued on a course of IV Solu-Medrol and IV Benadryl with significant improvement of the rash which extended on his trunk down to his groin and on his upper extremities. He is not having any significant shortness of breath and no wheezing was noted. Was recently started on chlorthalidone daily on April 05 by his public health worker. He states that when he went for his checkup his blood work was fine and was told to continue on this medication. When he comes into the hospital this time his BUN was elevated at 62 and a creatinine of 1.99. Currently his BUN is down to 43.5 and a creatinine of 1.5. White blood cell count is elevated at 15.26. Patient has been afebrile. He has also been continued on 40 mg of lisinopril daily. This medication will be held patient will be continued on normal saline at 75 mL/h. He will be started on a low-dose of hydralazine for improved blood pressure control. 06/06/2025 Patient evaluated in follow-up on the medical floor. He continues to report a generalized maculopapular rash. Steroid cream will be added and monitor for improvement overnight he will continue on IV Solu-Medrol and IV Benadryl [id number]. He continues off lisinopril and chlorthalidone at this time he is started on hydralazine oral 25 mg twice daily. His labs today reveal a blood cell count of 15.72, hemoglobin 12.2. Sodium level of 136 potassium 4.9, BUN of 36.3, creatinine of 1.3. Magnesium level 1.7. Urinalysis was negative and not suggestive of infection. Review of Systems Constitutional: Denied any fatigue denied any fever. Cardio vascular: denied any chest pain, palpitations Gastrointestinal: denied any nausea, vomiting, diarrhea Pulmonary: Denied any shortness of breath cough Neurologic denied any new focal deficits All inpatient medications were reviewed and appropriate changes in these medications as dictated in the interval history and assessment and plan. PHYSICAL EXAMINATION: GENERAL: The patient is alert and oriented x3, not in any acute distress. Well developed, well nourished. HEENT: Pupils are round and equally reacting to light. EOMI. No scleral icterus. No conjunctival pallor. Normocephalic, atraumatic. No pharyngeal erythema. No thyromegaly. CARDIOVASCULAR: S1 and S2 present. No murmurs, rubs, or gallops. PULMONARY: Chest is clear to auscultation, no wheezing or crackles. ABDOMEN: Soft, nontender, nondistended, normoactive bowel sounds. No palpable organomegaly. MUSCULOSKELETAL: No joint swelling or deformity. EXTREMITIES: No cyanosis, clubbing, or pedal edema. NEUROLOGICAL: Gross neurological examination did not reveal any focal deficits. SKIN: Maculopapular rash Left lower abdomen into groin Assessment Diffuse maculopapular rash possibly related to medication affect Acute kidney injury, drug-induced secondary to ANGELES inhibitor and chlorthalidone Hyperkalemia because of the ROYAL Leukocytosis likely reactive to the high dose solumedrol History of CVA/TIA Hypertension Hyperlipidemia History of renal cell carcinoma with partial right nephrectomy GI prophylaxis DVT prophylaxis Full Code Plan Continue IV benadryl, IV solumedrol Continue to hold chlorthalidone Hold lisinopril Add steroid cream twice daily Continue normal saline at 75 mls/hr Continue to monitor renal function and electrolytes Add hydralazine BID for improved blood pressure control Continue amlodipine [address] Moore to resume care of patient in the morning The impression and plan of care has been dictated by Rupali Coley Nurse Practitioner as directed. Dr. Elmira MD I have performed a history and physical examination and medical decision making of this patient, discussed the same with the dictator, and agree with the dictators assessment and plan as written, documented as a scribe. Based on total visit time, I have performed more than 50% of this visit. Objective - Vital Signs Vital signs: Vital Signs Temp 97.7 F 06/06/25 07:10 Pulse 65 06/06/25 07:10 Resp 16 06/06/25 07:10 BP 176/79 06/06/25 07:10 Pulse Ox 93 L 06/06/25 07:10 FiO2 Intake & Output 06/05/25 06/06/25 06/06/25 18:59 06:59 18:59 Intake Total 960 240 Balance 960 240 Intake: Oral 960 240 Other: # Voids 1 2 1 # Bowel Movements 1 - Labs CBC & Chem 7: 06/06/25 04:32 07/06/25 04:32 Labs: Abnormal Lab Results - Last 24 Hours (Table) 06/05/25 06/05/25 06/05/25 Range/Units 05:25 12:16 17:03 WBC 15.26 H (4.50-10.00) X 10*3/uL RBC 3.91 L (4.40-5.60) X 10*6/uL Hgb 12.7 L (13.0-17.0) g/dL Hct 37.8 L (39.6-50.0) % MCH 32.5 H (27.0-32.0) pg MPV 9.1 L (9.5-12.2) FL Immature Gran # 0.15 H (0.00-0.04) X 10*3/uL Neutrophils # 13.77 H (1.80-7.70) X 10*3/uL Lymphocytes # 0.89 L (0.90-5.00) X 10*3/uL Eosinophils # 0 L (0.04-0.35) X 10*3/uL Carbon Dioxide (21.6-31.8) mmol/L Anion Gap (4.00-12.00) mmol/L BUN (9.0-27.0) mg/dL Est GFR (CKD-EPI) (>=60) BUN/Creatinine Ratio (12.00-20.00) Ratio Glucose (70-110) mg/dL POC Glucose (mg/dL) 158 H 152 H (70-110) mg/dL Calcium (8.7-10.3) mg/dL 06/05/25 06/06/25 06/06/25 Range/Units 20:12 04:32 04:32 WBC 15.72 H (4.50-10.00) X 10*3/uL RBC 3.74 L (4.40-5.60) X 10*6/uL Hgb 12.2 L (13.0-17.0) g/dL Hct 36.1 L (39.6-50.0) % MCH 32.6 H (27.0-32.0) pg MPV 9.1 L (9.5-12.2) FL Immature Gran # 0.17 H (0.00-0.04) X 10*3/uL Neutrophils # 14.07 H (1.80-7.70) X 10*3/uL Lymphocytes # (0.90-5.00) X 10*3/uL Eosinophils # 0 L (0.04-0.35) X 10*3/uL Carbon Dioxide 21.1 L (21.6-31.8) mmol/L Anion Gap 12.90 H (4.00-12.00) mmol/L BUN 36.3 H (9.0-27.0) mg/dL Est GFR (CKD-EPI) 55 L (>=60) BUN/Creatinine Ratio 27.92 H (12.00-20.00) Ratio Glucose 143 H (70-110) mg/dL POC Glucose (mg/dL) 175 H (70-110) mg/dL Calcium 8.6 L (8.7-10.3) mg/dL 06/06/25 Range/Units 06:07 WBC (4.50-10.00) X 10*3/uL RBC (4.40-5.60) X 10*6/uL Hgb (13.0-17.0) g/dL Hct (39.6-50.0) % MCH (27.0-32.0) pg MPV (9.5-12.2) FL Immature Gran # (0.00-0.04) X 10*3/uL Neutrophils # (1.80-7.70) X 10*3/uL Lymphocytes # (0.90-5.00) X 10*3/uL Eosinophils # (0.04-0.35) X 10*3/uL Carbon Dioxide (21.6-31.8) mmol/L Anion Gap (4.00-12.00) mmol/L BUN (9.0-27.0) mg/dL Est GFR (CKD-EPI) (>=60) BUN/Creatinine Ratio (12.00-20.00) Ratio Glucose (70-110) mg/dL POC Glucose (mg/dL) 147 H (70-110) mg/dL Calcium (8.7-10.3) mg/dL Assessment and Plan Time with Patient: Less than 30
[2025-06-06 17:28] LABS: Glucose,Whole Blood 186 mg/dL (70-110)
[2025-06-06 20:10] LABS: Glucose,Whole Blood 179 mg/dL (70-110)
[2025-06-06] MEDS: BETAMETHASONE DIPROPIONATE 0.05% OINTMENT 45 GM TUBE TOPICAL SCH (20:49)
[2025-06-07 05:35] LABS: Glucose,Whole Blood 139 mg/dL (70-110)
[2025-06-07 07:16] VITALS: RESP 18; TEMP 97.8
[2025-06-07 10:46] LABS: Basophils # (A) 0.06 X 10*3/uL (0.00-0.10); Basophils % (A) 0.4 %; Eosinophils # (A) 0 X 10*3/uL (0.04-0.35); Eosinophils % (A) 0 %; HCT 39.1 % (39.6-50.0); HGB 12.7 g/dL (13.0-17.0); Immature Grans, Automated 1.80 %; Lymphocytes # (A) 1.24 X 10*3/uL (0.90-5.00); Lymphocytes % (A) 7.9 %; MCH 31.9 pg (27.0-32.0); MCHC 32.5 g/dL (32.0-37.0); MCV 98.2 FL (80.0-97.0); Monocytes # (A) 0.68 X 10*3/uL (0.20-1.00); Monocytes % (A) 4.3 %; NRBC Per 100 WBC 0 X 10*3/uL (0.00-0.01); Neutrophils # (A) 13.44 X 10*3/uL (1.80-7.70); Neutrophils % (A) 85.6 %; Platelet Count 265 X 10*3/uL (140-440); RBC 3.98 X 10*6/uL (4.40-5.60); RDW 13.1 % (11.5-14.5); WBC 15.71 X 10*3/uL (4.50-10.00)
--- NOTE | 2025-06-07 10:46 | P.DS ---
Providers Date of admission: 06/05/25 06:28 Expected date of discharge: 06/07/25 Attending physician: Kristian Moore Primary care physician: Kristian Moore [facility] Course: Final Diagnoses: Diffuse maculopapular rash possibly related to medication affect Acute kidney injury, drug-induced secondary to ANGELES inhibitor and chlorthalidone Hyperkalemia because of the ROYAL Leukocytosis likely reactive to the high dose solumedrol History of CVA/TIA Hypertension Hyperlipidemia History of renal cell carcinoma with partial right nephrectomy This is a pleasant 84-year-old male patient of Dr. Moore. He comes into the hospital secondary to generalized diffuse rash. He has been continued on a course of IV Solu-Medrol and IV Benadryl with significant improvement of the rash which extended on his trunk down to his groin and on his upper extremities. He is not having any significant shortness of breath and no wheezing was noted. Was recently started on chlorthalidone daily on April 05 by his noc technician. He states that when he went for his checkup his blood work was fine and was told to continue on this medication. When he comes into the hospital this time his BUN was elevated at 62 and a creatinine of 1.99. Currently his BUN is down to 43.5 and a creatinine of 1.5. White blood cell count is elevated at 15.26. Patient has been afebrile. He has also been continued on 40 mg of lisinopril daily. This medication will be held patient will be continued on normal saline at 75 mL/h. He will be started on a low-dose of hydralazine for improved blood pressure control. 06/06/2025 Patient evaluated in follow-up on the medical floor. He continues to report a generalized maculopapular rash. Steroid cream will be added and monitor for improvement overnight he will continue on IV Solu-Medrol and IV Benadryl [id number]. He continues off lisinopril and chlorthalidone at this time he is started on hydralazine oral 25 mg twice daily. His labs today reveal a blood cell count of 15.72, hemoglobin 12.2. Sodium level of 136 potassium 4.9, BUN of 36.3, creatinine of 1.3. Magnesium level 1.7. Urinalysis was negative and not suggestive of infection. Significant clinical improvement. Chlorthalidone and lisinopril discontinued. Creatinine down to 1.3 .hydralazine increased in addition to patient's amlodipine for tighter blood pressure control. IV steroids transitioned to tapering oral in addition to topical steroid ointment Betamethasone Dipropionate and [id number] Benadryl as needed. Patient will be discharged home today with family in stable condition with guarded prognosis. Follow-up with PCP in 3 days. The impression and plan of care has been dictated as directed. : I performed a history and examination of this patient, discussed the same with the dictator. I agree with the dictator's note ,documented as a scribe. Any additional findings or plans will be noted. Patient Condition at Discharge: Stable Plan - Discharge Summary New Discharge Prescriptions: New predniSONE 10 mg PO DIRECTED #30 tab hydrALAZINE HCL [Apresoline] 50 mg PO BID #60 tab amLODIPine [Norvasc] 10 mg PO DAILY #30 tab Continue Simvastatin [Zocor] 20 mg PO HS Aspirin EC [Ecotrin Low Dose] 81 mg PO DAILY OXcarbazepine 600 mg PO BID Vitamin D3 85mcg 85 mcg PO HS Zinc Gluconate [Zinc] 50 mg PO HS Multivitamins, Thera [Multivitamin (formulary)] 1 tab PO HS Metoprolol Succinate (ER) [Toprol XL] 25 mg PO DAILY Tamsulosin [Flomax] 0.4 mg PO DAILY Discontinued Chlorthalidone [Hygroton] 25 mg PO DAILY amLODIPine BESYLATE/BENAZEPRIL [Lotrel 10-40 mg Capsule] 1 cap PO DAILY Discharge Medication List Simvastatin [Zocor] 20 mg PO HS 10/24/15 [History] Aspirin EC [Ecotrin Low Dose] 81 mg PO DAILY 06/03/25 [History] Metoprolol Succinate (ER) [Toprol XL] 25 mg PO DAILY 06/03/25 [History] Multivitamins, Thera [Multivitamin (formulary)] 1 tab PO HS 06/03/25 [History] OXcarbazepine 600 mg PO BID 06/03/25 [History] Tamsulosin [Flomax] 0.4 mg PO DAILY 06/03/25 [History] Vitamin D3 85mcg 85 mcg PO HS 06/03/25 [History] Zinc Gluconate [Zinc] 50 mg PO HS 06/03/25 [History] amLODIPine [Norvasc] 10 mg PO DAILY #30 tab 06/07/25 [Rx] hydrALAZINE HCL [Apresoline] 50 mg PO BID #60 tab 06/07/25 [Rx] predniSONE 10 mg PO DIRECTED #30 tab 06/07/25 [Rx] Follow up Appointment(s)/Referral(s): Kristian Moore DO [Primary Care Provider] - 3 Days
[2025-06-07 11:03] LABS: Anion Gap 11.20 mmol/L (4.00-12.00); BUN/Creat Ratio 26.00 Ratio (12.00-20.00); Blood Urea Nitrogen 33.8 mg/dL (9.0-27.0); Calcium 8.5 mg/dL (8.7-10.3); Carbon Dioxide 21.8 mmol/L (21.6-31.8); Chloride 99 mmol/L (96-109); Glucose 137 mg/dL (70-110); Magnesium 1.9 mg/dL (1.5-2.4); Potassium 4.7 mmol/L (3.5-5.5); Sodium 132 mmol/L (135-145)
[2025-06-07 11:04] VITALS: BP 122/65; PULSE 60
[2025-06-07 12:16] LABS: Glucose,Whole Blood 115 mg/dL (70-110)
== END 2025-06-07 12:50 | disposition home or self-care (01) | DRG 607 ==
LOC: EC 13:03 → 6NMEDSUR 16:23 → OBSVTOIN 06-05 06:28
PROVIDERS: ADMIT Family Medicine; ATTEND Family Medicine
DX: L27.0 Generalized skin eruption due to drugs and medicaments taken internally (principal); N17.9 Acute kidney failure, unspecified; I12.9 Hypertensive chronic kidney disease with stage 1 through stage 4 chronic kidney disease, or unspecified chronic kidney disease; N18.9 Chronic kidney disease, unspecified; D72.829 Elevated white blood cell count, unspecified; E78.5 Hyperlipidemia, unspecified; E87.5 Hyperkalemia; Z79.82 Long term (current) use of aspirin; T50.2X5A Adverse effect of carbonic-anhydrase inhibitors, benzothiadiazides and other diuretics, initial encounter; T38.0X5A Adverse effect of glucocorticoids and synthetic analogues, initial encounter; T46.4X5A Adverse effect of angiotensin-converting-enzyme inhibitors, initial encounter; Z85.828 Personal history of other malignant neoplasm of skin; Z85.528 Personal history of other malignant neoplasm of kidney; Z90.5 Acquired absence of kidney; Z86.73 Personal history of transient ischemic attack (TIA), and cerebral infarction without residual deficits
CPT/HCPCS: 36415; 80048; 80053; 81003; 83036; 83735; 85025; 96361; 96374; 96375; 99285